=== PATIENT | female | born 1970 | race Hispanic/Latino ===

== ENCOUNTER 2020-01-30 14:29 | Outpatient (CLI) | payer OTHER ==
--- NOTE | 2020-01-30 16:45 | RAD ---
EXAM: LEFT KNEE TWO VIEWS: 01/30/20 HISTORY: Acute pain left knee, injury following a trip and fall with patellar pain. FINDINGS: Essentially nondisplaced horizontal fracture through the mid patella. Overlying soft tissue swelling. No significant abnormal joint effusion. IMPRESSION: Horizontal nondisplaced transverse fracture through the mid patella with overlying soft tissue swelli ng. Code T POS: OFF
== END 2020-01-30 14:30 | disposition home or self-care (01) ==
LOC: BICRAD 14:29
DX: M25.562 Pain in left knee (principal); S82.035A Nondisplaced transverse fracture of left patella, initial encounter for closed fracture; M79.89 Other specified soft tissue disorders

== ENCOUNTER 2022-05-11 06:59 | Outpatient (CLI) | payer OTHER | END 2022-05-11 07:00 | disposition home or self-care (01) | LOC: BICULT 06:59 | PROVIDERS: ATTEND Registered Nurse Community Health | DX: R10.11 Right upper quadrant pain (principal); R16.0 Hepatomegaly, not elsewhere classified | CPT/HCPCS: 76705 ==

== ENCOUNTER 2024-04-13 12:55 | Outpatient (CLI) | payer OTHER | END 2024-04-13 12:56 | disposition home or self-care (01) | LOC: CT 12:55 | PROVIDERS: ATTEND Orthopaedic Surgery | DX: S72.002A Fracture of unspecified part of neck of left femur, initial encounter for closed fracture (principal) ==